=== PATIENT | female | born 1975 | race Caucasian/White ===

== ENCOUNTER → 2020-11-04 02:01 | Outpatient (CLI) | payer OTHER, SELFPAY ==
[2020-11-04 19:34] LABS: SARS-CoV-2 RNA PCR Negative
== END ==
PROVIDERS: Visit Provider Surgery Plastic and Reconstructive Surgery
DX: Z01.812 Encounter for preprocedural laboratory examination (principal); Z20.822 Contact with and (suspected) exposure to COVID-19
CPT/HCPCS: C9803; U0003; U0005

== ENCOUNTER 2020-11-07 01:27 | Day surgery (SDC) | payer OTHER, SELFPAY ==
[2020-10-30 08:24] VITALS: BMI 26.6
[2020-11-07] VITALS (8 sets, daily range): BP systolic 107–140; BP diastolic 62–92; PULSE 62–98; RESP 12–20; TEMP 36.1–36.6; O2SAT 95–100; BMI 25.9
[2020-11-07] MEDS: LACTATED RINGERS 1,000 ML 30 ML IV CONT ×2 (11:05→13:42)
--- NOTE | 2020-11-07 11:14 | WPDANESEPPF ---
Anes - Initial Pre Proc Eval Procedure: Operation Date: 11/07/20 12:30 Proposed Procedures p Bilateral Breast Augmentation - Francisco J Self MD Date/Time: 11/07/20 11:14 Surgeon: Francisco J Self MD Pre Op Diagnosis: micromastia Patient Data Age: 45 Gender: F Height: 5 ft 5 in Weight: 70.8 kg Allergies Allergy/AdvReac Type Severity Reaction Status Date / Time No Known Allergies Allergy Verified 11/07/20 10:52 Home Medications Medication Instructions Recorded Confirmed Type celecoxib 200 mg capsule 200 mg PO DAILY 10/24/20 11/07/20 History duloxetine 60 mg capsule,delayed 60 mg PO DAILY 10/24/20 11/07/20 History release sumatriptan succinate 50 mg tablet 50 mg PO ONCE PRN 10/24/20 10/30/20 History topiramate 100 mg capsule 100 mg PO DAILY 10/24/20 11/07/20 History sprinkle,extended release 24 hr carisoprodol 350 mg tablet 350 mg PO TID PRN #21 tablet 10/31/20 10/31/20 Rx docusate sodium 100 mg capsule 100 mg PO DAILY #14 cap 10/31/20 Rx oxycodone-acetaminophen 5 mg-325 1 tablet PO Q6H PRN #15 tablet 10/31/20 10/31/20 Rx mg tablet Patient hx anesthesia problems: none Family hx anesthesia problems: none PMFSH Past Medical History Medical History Hx of migraines Surgical History Surgical History History of hysterectomy Social History Social History Smoking packs per day: 0.5 Smoking cigarettes per day: 10.0 Years smoked: 20 Smoking pack-years: 10.00 Smoking status: Former smoker Tobacco type: cigarettes Smoking end date: 10/28/20 Alcohol intake: current Drinks per week: 6 Substance use: current Substance use type: does not use Living arrangements: with family Spiritual care concerns: No Anes - Eval Final PreProcedure Day of Procedure 11/07/20 11:14 Patient weight: normal Heart: regular rate and rhythm Lungs: clear to auscultation Airway: Mallampati scale class II Neurological: alert and oriented Last oral intake: >/= 8 hours ASA classification: II Emergent: no Anesthetic plan: proceed Anesthesia type and monitoring: general LMA and standard monitoring Informed Consent: The patient's anesthetic plan and its attendant risks and benefits were discussed with the patient/family/POA. Questions were solicited and answers provided to the satisfaction of the patient/family/POA.
[2020-11-07] MEDS: SCOPOLAMINE 1.5 MG PATCH TRANSDERM (11:25)
--- NOTE | 2020-11-07 12:02 | WPDHPUPDATE1 ---
History and Physical Update Update Date/Time: 11/07/20 12:02 History and Physical has been reviewed, including an updated exam of the patient. There are NO changes in the patient's condition. Risks, benefits, and alternatives have been discussed and questions answered. Patient agrees to proceed with procedure.
--- NOTE | 2020-11-07 12:12 | PM.PROC ---
Procedure Note - Detailed Date of procedure: 11/07/20 Pre-op diagnosis: micromastia Post-op diagnosis: same Procedure performed: Bilateral Augmentation Mammaplasty Description of procedure: She is here today for bilateral breast augmentation. Previously and again today the risks, benefits, alternatives were discussed in extensive detail. I wanted her to be very realistic about the risks involved as well as expectations. We discussed aftercare and what to monitor for. Made sure answered all of her questions to her satisfaction today and consent was obtained. Marked in the preoperative holding area with their verification. The patient was taken to the operating room placed supine on the operating table. Anesthesia was provided by anesthesiology. A surgical time-out was taken. We cleansed the skin and 1% lidocaine and 0.25% Marcaine with epinephrine was used anesthetize as a field block. She was prepped and draped in a standard sterile fashion. Tegaderm nipple Olson were placed. A 15 blade used to make an incision along the inframammary fold. Dissection was continued at 45 degree angle until the chest wall as identified. I incised the pectoralis major along its inferior border and completely released the inferior border leaving the medial border intact. I created a subpectoral pocket in the appropriate dimensions based on our preoperative planning for the implant. I then copiously irrigated with saline solution and verified a strict hemostasis. Next the use a triple antibiotic and Betadine containing solution to irrigate the pocket. I washed my gloves with the triple antibiotic and Betadine solution. We washed the implant immediately upon opening it with this solution and only opened it when we needed it. I used implant funnel and no-touch technique. The implant was introduced into the pocket using the funnel. Having verified positioning of the implant this was closed using 2-0 Vicryl followed by 3-0 Monocryl in a running subcuticular 4-0 Monocryl followed by tissue glue. Fluffs, Robert wrap, and surgical bra were placed. Patient was awoke and taken to PACU without difficulty. All instrument sponge counts were correct at the end of the case. Anesthesia: GLMA Surgeon: Francisco J Self MD Estimated blood loss (mL): 10 Drains: No Packing: No Pathology: none sent Complications: No immediate complications Condition: stable Disposition: PACU Findings: Bilateral dual plane 1 augmentation mammaplasty. Bilateral Natrelle Inspira SoftTouch Silicone implants 405cc Right: REF# [id number] Left: REF# [id number]
--- NOTE | 2020-11-07 12:20 | SUR.PREOP ---
1200; DR CHRISTIANSON MARKED PT, RN IN ROOM
[2020-11-07] MEDS: LIDO 1%/EPINEPHRINE 1:100,000 50 ML VIAL 30 ML INFILTRATE (12:37)
[2020-11-07] MEDS: ceFAZolin 2 GM/D5W 50 ML 2 GM/50 ML BAG IVPB (12:37)
[2020-11-07] MEDS: oxyCODONE HCL (*CRX) 5 MG TAB IR PO (14:45)
== END 2020-11-07 15:27 | disposition home or self-care (01) ==
PROVIDERS: Visit Provider Surgery Plastic and Reconstructive Surgery
PROC: (CPT 19325; principal; 2020-11-07 12:30)
DX: Z41.1 Encounter for cosmetic surgery (principal); N64.82 Hypoplasia of breast; Z87.891 Personal history of nicotine dependence
CPT/HCPCS: 19325; A9270; J0690; J1100; J1580; J2250; J2405; J2704; J3010; J7120